=== PATIENT | female | born 1955 | race Caucasian/White ===

== ENCOUNTER 2016-12-22 14:11 | Outpatient (CLI) | payer OTHER ==
[2016-12-22 14:36] LABS: BASOPHILS % (AUTO) 0.8 %; EOSINOPHILS # (AUTO) 0.1 10^3/uL (0.0-0.7); EOSINOPHILS % (AUTO) 2.8 %; HCT - HEMATOCRIT 43.5 % (37.0-47.0); HGB - HEMOGLOBIN 14.7 g/dL (12.0-16.0); LYMPHOCYTES # (AUTO) 1.9 10^3/uL (1.5-3.5); MEAN CORPUSCULAR HEMOGLOBIN 29.4 pg (27.0-31.0); MEAN CORPUSCULAR HGB CONC 33.7 g/dL (32.0-36.0); MEAN CORPUSCULAR VOLUME 87.2 fL (81.0-99.0); MEAN PLATELET VOLUME 7.2 fL (7.9-10.8); MONOCYTES # (AUTO) 0.4 10^3/uL (0.0-1.0); MONOCYTES % (AUTO) 7.6 %; NEUTROPHILS # (AUTO) 2.6 10^3/uL (1.5-6.6); NEUTROPHILS % (AUTO) 51.8 %; RED BLOOD COUNT 4.99 10^6/uL (4.20-5.40); RED CELL DISTRIBUTION WIDTH 12.8 % (12.0-15.0); UNCORRECTED WHITE BLOOD COUNT 5.1 x10^3/uL; WHITE BLOOD COUNT 5.1 x10^3/uL (4.8-10.8)
[2016-12-22 14:47] LABS: ALBUMIN/GLOBULIN RATIO 1.5 (1.0-2.2); CALCIUM 9.2 mg/dL (8.5-10.3); CREATININE 0.6 mg/dL (0.4-1.0); POTASSIUM 3.8 mmol/L (3.5-5.0); TOTAL PROTEIN 7.3 g/dL (6.7-8.2)
--- NOTE | 2016-12-22 18:03 | Ultrasound Report ---
RIGHT UPPER QUADRANT ULTRASOUND: 12/22/2016 CLINICAL INDICATION: Nausea, pain. 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 The liver measures 13 cm. Hepatic echotexture is normal. No intrahepatic biliary dilatation or foca l parenchymal lesion is present. The common bile duct measures 5 mm. The gallbladder is normal, as is the right kidney. No free fluid is present. IMPRESSION: NORMAL RIGHT UPPER QUADRANT ULTRASOUND. JOB #: [id number] EXT JOB #:[id number]
--- NOTE | 2016-12-22 18:08 | Ultrasound Preliminary Report ---
Exam: US ABDOMEN LIMITED IMPRESSION: Normal. No cholelithiasis or cholecystitis. [facility] SITE ID: [id number]
== END 2016-12-22 14:12 | disposition home or self-care (01) ==
LOC: DI 14:11
PROVIDERS: ATTEND Naturopath
DX: R10.9 Unspecified abdominal pain (principal); R11.0 Nausea; K29.70 Gastritis, unspecified, without bleeding; R53.83 Other fatigue
CPT/HCPCS: 36415; 76705; 80053; 82150; 83690; 85025

== ENCOUNTER 2017-05-04 14:04 | Outpatient (CLI) | payer OTHER ==
[2017-05-04 15:03] LABS: BUN - BLOOD UREA NITROGEN 10 mg/dL (6-20); CALCIUM 9.7 mg/dL (8.5-10.3); CARBON DIOXIDE - CO2 26 mmol/L (21-32); CHLORIDE 103 mmol/L (101-111); CREATININE 0.7 mg/dL (0.4-1.0); GFR - MDRD 85 (>89); GLUCOSE 86 mg/dL (70-100); MAGNESIUM 1.9 mg/dL (1.7-2.8); SODIUM 139 mmol/L (135-145)
[2017-05-04 15:06] LABS: BASOPHILS % (AUTO) 0.6 %; EOSINOPHILS # (AUTO) 0.6 10^3/uL (0.0-0.7); EOSINOPHILS % (AUTO) 10.9 %; HCT - HEMATOCRIT 39.6 % (37.0-47.0); HGB - HEMOGLOBIN 13.9 g/dL (12.0-16.0); LYMPHOCYTES % (AUTO) 37.2 %; MEAN CORPUSCULAR HEMOGLOBIN 30.4 pg (27.0-31.0); MEAN CORPUSCULAR HGB CONC 35.1 g/dL (32.0-36.0); MEAN CORPUSCULAR VOLUME 86.6 fL (81.0-99.0); MEAN PLATELET VOLUME 7.7 fL (7.9-10.8); MONOCYTES # (AUTO) 0.3 10^3/uL (0.0-1.0); MONOCYTES % (AUTO) 6.2 %; NEUTROPHILS # (AUTO) 2.4 10^3/uL (1.5-6.6); NEUTROPHILS % (AUTO) 45.1 %; RED BLOOD COUNT 4.57 10^6/uL (4.20-5.40); RED CELL DISTRIBUTION WIDTH 13.5 % (12.0-15.0); UNCORRECTED WHITE BLOOD COUNT 5.3 x10^3/uL; WHITE BLOOD COUNT 5.3 x10^3/uL (4.8-10.8)
[2017-05-04 15:22] LABS: THYROID STIMULATING HORMONE 0.29 uIU/mL (0.34-5.60)
== END 2017-05-04 14:05 | disposition home or self-care (01) ==
LOC: LAB 14:04
PROVIDERS: ATTEND Nurse Practitioner Acute Care
DX: I48.0 Paroxysmal atrial fibrillation (principal); R06.09 Other forms of dyspnea; E03.8 Other specified hypothyroidism
CPT/HCPCS: 36415; 80048; 83735; 83880; 84439; 84443; 85025

== ENCOUNTER 2017-09-17 11:12 | Emergency (ER) | payer OTHER ==
[2017-09-17 11:22] VITALS: BP 154/92
--- NOTE | 2017-09-17 12:20 | ED Physician Documentation ---
PD HPI HEAD INJURY - Stated complaint Stated Complaint: HEAD LAC - Chief complaint Chief Complaint: Laceration - History obtained from History obtained from: Patient, Family - History of Present Illness Mechanism of head injury: Blow (This is a very healthy 61-year-old woman who is up-to-date on tetanus, she was working at home, she was down on the ground opening a drawer and a heavy metal Jorge figurine fell and hit her on the right worship. There is no loss of consciousness but she was confused for about an hour with a significant headache and nausea but no vomiting. Her symptoms are improving. No other injuries.) Review of Systems Constitutional: reports: Reviewed and negative Ears: reports: Reviewed and negative Nose: reports: Reviewed and negative PD PAST MEDICAL HISTORY - Past Medical History Past Medical History: Yes Cardiovascular: None Respiratory: None GI: Other : Kidney stones Musculoskeletal: Scoliosis - Present Medications Home Medications: Ambulatory Orders Medication Instructions Recorded Confirmed Thyroid,Pork [[place] Thyroid] 90 mg ORAL DAILY 03/25/16 03/25/16 - Allergies Allergies/Adverse Reactions: Allergies Allergy/AdvReac Type Severity Reaction Status Date / Time iodine Allergy Anaphylaxis Verified 03/25/16 09:16 latex Allergy Respiratory Verified 03/25/16 09:16 Penicillins Allergy Respiratory Verified 03/25/16 09:16 Sulfa (Sulfonamide Allergy Hives Verified 03/25/16 09:16 Antibiotics) - Social History Does the pt smoke?: No Smoking Status: Never smoker PD ED PE NORMAL - Vitals Vital signs reviewed: Yes - General General: Alert and oriented X 3, No acute distress - HEENT HEENT: PERRL, EOMI, Other (There is a tiny skin tear with an underlying hematoma over the right worship, no underlying skull tenderness.) - Neck Neck: Supple, no meningeal sign, No bony TTP - Neuro Neuro: Alert and oriented X 3, 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 Departure - Departure Disposition: 01 Home, Self Care Clinical Impression: Concussion Qualifiers: Encounter type: initial encounter Loss of consciousness presence/duration: without LOC Qualified Code(s): S06.0X0A - Concussion without loss of consciousness, initial encounter Condition: Good Record reviewed to determine appropriate education?: Yes Instructions: ED Concussion Comments: Call your doctor to arrange a follow-up appointment, make the next available appointment. In the interim, return anytime if worse or if new symptoms develop. Your blood pressure was elevated today on check into the emergency department. This does not mean that you have hypertension, it is a common phenomenon to come to the emergency department and have elevated blood pressure. I recommend that you see your primary care physician within the week to have it rechecked when you are feeling better.
--- NOTE | 2017-09-17 13:03 | CT Report ---
EXAM: CT HEAD EXAM DATE: 09/17/2017 12:35 PM. CLINICAL HISTORY: Head inj. COMPARISON: None. TECHNIQUE: Multiaxial CT images were obtained from the foramen magnum to the vertex. Reformats: Coron al. IV contrast: None. In accordance with CT protocol optimization, one or more of the following dose reduction techniques w ere utilized for this exam: automated exposure control, adjustment of mA and/or KV based on patient s ize, or use of iterative reconstructive technique. FINDINGS: Parenchyma: No intraparenchymal hemorrhage. No evidence of mass, midline shift, or CT findings of inf arction. Coley-white differentiation is distinct. Extraaxial Spaces: Normal for age. No subdural or epidural collections identified. Ventricles: Normal in size and position. Sinuses and Orbits: Imaged paranasal sinuses, orbits, and mastoids show no significant abnormality. Bones: No evidence of fracture or calvarial defect. Other: None. IMPRESSION: No acute intracranial abnormality. [facility] Referring Provider Line: [phone] SITE ID: [id number]
== END 2017-09-17 13:13 | disposition home or self-care (01) ==
LOC: ED 11:12
DX: S06.0X0A Concussion without loss of consciousness, initial encounter (principal); S01.81XA Laceration without foreign body of other part of head, initial encounter; W20.8XXA Other cause of strike by thrown, projected or falling object, initial encounter; Y93.89 Activity, other specified; Y92.009 Unspecified place in unspecified non-institutional (private) residence as the place of occurrence of the external cause; R03.0 Elevated blood-pressure reading, without diagnosis of hypertension
CPT/HCPCS: 70450; 99283; 99284

== ENCOUNTER 2017-10-30 20:01 | Outpatient (CLI) | END 2017-10-30 20:02 | disposition home or self-care (01) ==

== ENCOUNTER 2018-02-21 12:49 | Emergency (ER) | payer OTHER ==
[2018-02-21] MEDS ORDERED: ONDANSETRON 4 MG/2 ML VIAL IVP STA (13:03)
[2018-02-21] MEDS ORDERED: SODIUM CHLORIDE 0.9% 1,000 ML IV ONE (13:03)
[2018-02-21 13:39] LABS: BILIRUBIN,URINE NEGATIVE (NEGATIVE); GLUCOSE, URINE (UA) NEGATIVE (NEGATIVE); KETONES,URINE (UA) TRACE mg/dL (NEGATIVE); LEUKOCYTE ESTERASE, URINE SMALL (NEGATIVE); NITRITE,URINE NEGATIVE (NEGATIVE); OCCULT BLOOD,URINE NEGATIVE (NEGATIVE); PROTEIN,URINE NEGATIVE (NEGATIVE); UROBILINOGEN,URINE 0.2 (NORMAL) E.U./dL (NORMAL)
[2018-02-21] MEDS ORDERED: ACETAMINOPHEN 1,000 MG/100 ML 100 ML IV STA (13:40)
[2018-02-21 13:43] LABS: BASOPHILS % (AUTO) 0.3 %; EOSINOPHILS # (AUTO) 0.2 10^3/uL (0.0-0.7); EOSINOPHILS % (AUTO) 4.3 %; HGB - HEMOGLOBIN 14.5 g/dL (12.0-16.0); LYMPHOCYTES # (AUTO) 1.7 10^3/uL (1.5-3.5); LYMPHOCYTES % (AUTO) 44.7 %; MEAN CORPUSCULAR HEMOGLOBIN 30.7 pg (27.0-31.0); MEAN CORPUSCULAR HGB CONC 34.9 g/dL (32.0-36.0); MEAN CORPUSCULAR VOLUME 88.1 fL (81.0-99.0); MEAN PLATELET VOLUME 7.1 fL (7.9-10.8); MONOCYTES # (AUTO) 0.3 10^3/uL (0.0-1.0); NEUTROPHILS # (AUTO) 1.6 10^3/uL (1.5-6.6); NEUTROPHILS % (AUTO) 42.7 %; PLT - PLATELET COUNT 332 10^3/uL (130-450); RED BLOOD COUNT 4.71 10^6/uL (4.20-5.40); RED CELL DISTRIBUTION WIDTH 12.7 % (12.0-15.0); WHITE BLOOD COUNT 3.8 x10^3/uL (4.8-10.8)
[2018-02-21 13:55] LABS: ALBUMIN 4.5 g/dL (3.2-5.5); ALBUMIN/GLOBULIN RATIO 1.6 (1.0-2.2); CALCIUM 9.1 mg/dL (8.5-10.3); CREATININE 0.7 mg/dL (0.4-1.0); TOTAL PROTEIN 7.3 g/dL (6.7-8.2)
[2018-02-21 14:06] LABS: CLARITY,URINE CLEAR (CLEAR)
[2018-02-21 14:23] LABS: RBC,URINE 0-5 /HPF (0-5); SQUAMOUS EPITHELIAL CELL,UR FEW Squamous (<= Few)
[2018-02-21 14:24] LABS: BACTERIA,URINE Rare /HPF (None Seen)
--- NOTE | 2018-02-21 14:45 | CT Report ---
Reason: abd pain Procedure Date: 02/21/2018 Accession Number: [id number] / [id number] Procedure: CT - Abdomen/Pelvis W/O CPT Code: FULL RESULT: EXAM: CT ABDOMEN AND PELVIS EXAM DATE: 02/21/2018 02:28 PM. CLINICAL HISTORY: Abd pain. COMPARISONS: None. TECHNIQUE: Routine helical CT imaging was performed through the abdomen and pelvis. IV contrast: None. Enteric contrast: No. Reconstructions: Coronal and sagittal. In accordance with CT protocol optimization, one or more of the following dose reduction techniques were utilized for this exam: automated exposure control, adjustment of mA and/or KV based on patient size, or use of iterative reconstructive technique. FINDINGS: Lung Bases: Unremarkable. Liver: Normal contour. No masses. Gallbladder/Bile Ducts: Unremarkable. Spleen: Normal. Pancreas: Normal. Adrenal Glands: Normal. Kidneys: No renal stones. No masses or hydronephrosis. Peritoneal Cavity/Bowel: There are several prominent lymph nodes about the central mesentery. In addition, there is graying of the fat in between the celiac artery and aorta. Pelvic Organs: The bladder is decompressed and therefore not well evaluated. The visualized pelvic organs appear otherwise within normal limits. Vasculature: No aneurysm. As above, there is slight graying of the fat between the celiac artery and aorta. Bones: No bone lesions IMPRESSION: There is subtle graying of the fat between the celiac artery and aorta. Correlate clinically for possible vasculitis. Consider ESR or other inflammatory markers, possible known vasculitides, or other inflammatory or autoimmune process. Contrast-enhanced CT or MRI may be considered as clinically desired. There are several prominent central mesentery lymph nodes that may be related to that process, but may also consider mesenteric adenitis. [facility]
[2018-02-21 15:15] VITALS: BP 128/85
--- NOTE | 2018-02-21 16:02 | ED Physician Documentation ---
PD HPI ABD PAIN - Stated complaint Stated Complaint: ABD/BACK PX - Chief complaint Chief Complaint: Abd Pain - History obtained from History obtained from: Patient - Additional information Additional information: 62-year-old female presents the emergency department with increasing abdominal pain which she describes as a sharp crampy type pain which has progressively worsened over the past several days. The patient also reports burning with urination. No changes with food. No reports of fever, vomiting or diarrhea. The patient is having difficulty pinpointing the exact location of the pain. S ymptoms are described as moderate. No other associated symptoms. No specific triggering factors. No relieving factors. Review of Systems Constitutional: denies: Fever, Chills Eyes: denies: Discharge Ears: denies: Ear pain Nose: denies: Congestion Throat: denies: Sore throat Cardiac: denies: Chest pain / pressure Respiratory: denies: Cough GI: reports: Abdominal Pain, Nausea. denies: Vomiting, Diarrhea : reports: Dysuria. denies: Incontinent, Hematuria Skin: denies: Rash Musculoskeletal: reports: Back pain (The pain radiates into the patient's back) Neurologic: denies: Focal weakness, Numbness Psychiatric: denies: Hallucinations Immunocompromised: denies: Chemotherapy PD PAST MEDICAL HISTORY - Past Medical History Past Medical History: Yes Cardiovascular: Atrial fibrillation Respiratory: Other Neuro: Migraines Endocrine/Autoimmune: HyPOthyroidism GI: Other : Kidney stones Musculoskeletal: Scoliosis - Past Surgical History Past Surgical History: Yes General: Appendectomy HEENT: Tonsil/Adenoidectomy - Present Medications Home Medications: Ambulatory Orders Medication Instructions Recorded Confirmed Thyroid,Pork [[place] Thyroid] 90 mg ORAL DAILY 03/25/16 03/25/16 - Allergies Allergies/Adverse Reactions: Allergies Allergy/AdvReac Type Severity Reaction Status Date / Time iodine Allergy Anaphylaxis Verified 02/21/18 13:01 latex Allergy Respiratory Verified 02/21/18 13:01 Penicillins Allergy Respiratory Verified 02/21/18 13:01 Sulfa (Sulfonamide Allergy Hives Verified 02/21/18 13:01 Antibiotics) - Social History Does the pt smoke?: No Smoking Status: Never smoker Does the pt drink ETOH?: Yes ETOH Use: Wine Does the pt have substance abuse?: No - Immunizations Immunizations are current?: Yes - POLST Patient has POLST: No PD ED PE NORMAL - General General: Alert and oriented X 3, No acute distress - HEENT HEENT: Atraumatic, PERRL, EOMI, Ears normal - Neck Neck: Supple, no meningeal sign - Cardiac Cardiac: RRR, Strong equal pulses - Respiratory Respiratory: No respiratory distress, Clear bilaterally - Abdomen Abdomen: Soft, Non distended. No: Non tender (The patient has generalized tenderness, there is no rebound or peritoneal signs) - Back Back: No CVA TTP - Derm Derm: Normal color, No rash - Extremities Extremities: No deformity, No edema - Neuro Neuro: Alert and oriented X 3, Normal speech - Psych Psych: Normal affect Results - Vitals Vitals: Vital Signs - 24 hr 02/21/18 02/21/18 12:58 15:13 Temperature 35.7 C L 36.5 C Heart Rate 64 64 Respiratory 20 16 Rate Blood Pressure 146/80 H 128/85 H O2 Saturation 100 100 Oxygen O2 Source Room air - Labs Labs: Laboratory Tests 02/21/18 02/21/18 02/21/18 13:29 13:29 13:29 WBC 3.8 L RBC 4.71 Hgb 14.5 Hct 41.5 MCV 88.1 MCH 30.7 MCHC 34.9 RDW 12.7 Plt Count 332 MPV 7.1 L Neut # (Auto) 1.6 Lymph # (Auto) 1.7 [place] # (Auto) 0.3 Eos # (Auto) 0.2 Baso # (Auto) 0.0 Absolute Nucleated RBC 0.00 Nucleated RBC % 0.1 ESR Sodium 137 Potassium 3.6 Chloride 106 Carbon Dioxide 23 Anion Gap 8.0 BUN 10 Creatinine 0.7 Estimated GFR (MDRD) 85 L Glucose 89 Calcium 9.1 Total Bilirubin 1.0 AST 32 ALT 27 Alkaline Phosphatase 64 C-Reactive Protein Total Protein 7.3 Albumin 4.5 Globulin 2.8 Albumin/Globulin Ratio 1.6 Lipase 28 Urine Color YELLOW Urine Clarity CLEAR Urine pH 8.0 H Ur Specific [place] 1.010 Urine Protein NEGATIVE Urine Glucose (UA) NEGATIVE Urine Ketones TRACE Urine Occult Blood NEGATIVE Urine Nitrite NEGATIVE Urine Bilirubin NEGATIVE Urine Urobilinogen 0.2 (NORMAL) Ur Leukocyte Esterase SMALL H Urine RBC 0-5 Urine WBC 6-10 H Ur Squamous Epith Cells FEW Squamous Urine Bacteria Rare Ur Microscopic Review INDICATED Urine Culture Comments INDICATED 02/21/18 02/21/18 13:29 13:29 WBC RBC Hgb Hct MCV MCH MCHC RDW Plt Count MPV Neut # (Auto) Lymph # (Auto) [place] # (Auto) Eos # (Auto) Baso # (Auto) Absolute Nucleated RBC Nucleated RBC % ESR 7 Sodium Potassium Chloride Carbon Dioxide Anion Gap BUN Creatinine Estimated GFR (MDRD) Glucose Calcium Total Bilirubin AST ALT Alkaline Phosphatase C-Reactive Protein < 1.0 Total Protein Albumin Globulin Albumin/Globulin Ratio Lipase Urine Color Urine Clarity Urine pH Ur Specific [place] Urine Protein Urine Glucose (UA) Urine Ketones Urine Occult Blood Urine Nitrite Urine Bilirubin Urine Urobilinogen Ur Leukocyte Esterase Urine RBC Urine WBC Ur Squamous Epith Cells Urine Bacteria Ur Microscopic Review Urine Culture Comments - Rads (name of study) CT abd/pelvis Radiology: Final report received (IMPRESSION: There is subtle graying of the fat between the celiac artery and aorta. Correlate clinically for possible vasculitis. Consider ESR or other inflammatory markers, possible known vasculitides, or other inflammatory or autoimmune process. Contrast-enhanced CT or MRI may be considered as clinically desired. There are several prominent central mesentery lymph nodes that may be ) PD MEDICAL DECISION MAKING - ED course ED course: The case was discussed with the on-call general surgeon Dr. Gastelum, the patient's clinical presentation, lab work and CT findings were discussed. Presently the patient has no acute surgical condition and since there is no evidence of sepsis and her pain is under control he recommends having the patient continue her workup as an outpatient. On reevaluation the patient is resting comfortably. I discussed with the patient the findings on her workup. The patient is unable to have a CT scan with IV contrast secondary to a history of allergic reactions. I advised that the patient will need an MRI with and without contrast to further evaluate these nonspecific findings seen on CT scan to help delineate the etiology of her pain. Presently, the patient appears appropriate for discharge and further workup as an outpatient. The patient is going to talk with her natural pathic physician tomorrow to arrange for further workup. I discussed with the patient warning signs and advised that she should return to the emergency department immediately for any worsening or any concerns. Departure - Departure Disposition: 01 Home, Self Care Clinical Impression: Abnormal CT of the abdomen Abdominal pain Qualifiers: Abdominal location: generalized Qualified Code(s): R10.84 - Generalized abdominal pain Condition: Good Follow-Up: Edwin Mari ND [Primary Care Provider] - Tomorrow (Please ask your ND to order an outpatient MRI with and without contrast of your abdomen and pelvis to further evaluate the nonspecific finding seen on CT scan today. This is to help rule out or rule in a vasculitis.) Comments: Please return to the emergency department immediately for any worsening or any concerns.
== END 2018-02-21 16:29 | disposition home or self-care (01) ==
LOC: ED 12:49
DX: R93.5 Abnormal findings on diagnostic imaging of other abdominal regions, including retroperitoneum (principal); R10.84 Generalized abdominal pain; E03.9 Hypothyroidism, unspecified; Z91.041 Radiographic dye allergy status
CPT/HCPCS: 36415; 74176; 80053; 81001; 81003; 83690; 85025; 85651; 86140; 87086; 96360; 99282; 99283

== ENCOUNTER 2019-07-18 17:37 | Outpatient (CLI) | payer OTHER ==
--- NOTE | 2019-07-18 18:24 | XRAY Report ---
Reason: COUGH Procedure Date: 07/18/2019 Accession Number: [id number] / [id number] Procedure: XR - Chest 2 View X-Ray CPT Code: 45320 Final Report FULL RESULT: EXAM: CHEST RADIOGRAPHY EXAM DATE: 07/18/2019 05:51 PM. CLINICAL HISTORY: COUGH. COMPARISON: CHEST 2 VIEW PA/LAT 03/25/2016 2:49 PM. TECHNIQUE: 2 views. FINDINGS: Lungs/Pleura: No focal opacities evident. No pleural effusion. No pneumothorax. Normal volumes. Mediastinum: There is mild to moderate tortuosity of the thoracic aorta. The heart size is normal. Other: None. IMPRESSION: Negative for an acute cardiopulmonary abnormality. [facility]
== END 2019-07-18 17:38 | disposition home or self-care (01) ==
LOC: DI 17:37
PROVIDERS: ATTEND Naturopath
DX: R05 Cough (principal)
CPT/HCPCS: 71046

== ENCOUNTER 2020-10-01 15:29 | Outpatient (CLI) | payer OTHER ==
[2020-10-01 20:37] LABS: THYROID STIMULATING HORMONE 19.44 uIU/mL (0.34-5.60)
[2020-10-01 20:39] LABS: FREE T3 4.03 pg/mL (2.5-3.9)
[2020-10-01 20:40] LABS: FREE T4 (FREE THYROXINE) 0.65 ng/dL (0.58-1.64)
== END 2020-10-01 15:30 | disposition home or self-care (01) ==
LOC: LAB.S 15:29
PROVIDERS: ATTEND Internal Medicine Endocrinology, Diabetes & Metabolism
DX: E03.8 Other specified hypothyroidism (principal)
CPT/HCPCS: 36415; 84439; 84443; 84481

== ENCOUNTER 2020-10-28 08:00 | Outpatient (CLI) | payer OTHER ==
--- NOTE | 2020-10-29 14:21 | Mammography Report ---
BILATERAL DIGITAL SCREENING MAMMOGRAM 3D/2D WITH EXAGGERATED CC: 10/28/2020 CLINICAL: Routine screening. Comparison is made to exam dated: 09/04/2014 mammogram - [facility]. The tissue of both breasts is extremely dense, which lowers the sensitivity of mammography. There are benign vascular calcifications in both breasts. No significant masses, calcifications, or other findings are seen in either breast. There has been no significant interval change. IMPRESSION: BENIGN There is no mammographic evidence of malignancy. A 1 year screening mammogram is recommended. This exam was interpreted at Station ID: [id number]. NOTE: For mammograms, a report in lay terms will be sent to the patient. Approximately 15% of breast malignancies will not be visualized mammographically. In the management of a palpable breast mass, a negative mammogram must not discourage biopsy of a clinically suspicious lesion. Electronically Signed By: Jean Donahue M.D. slc/penrad:10/28/2020 16:16:53 ACR BI-RADS Category 2: Benign Finding(s) 3342F PARENCHYMAL PATTERN: (VD) - The breast(s) demonstrate(s) extremely dense parenchyma, limiting the sen sitivity of mammography. BI-RADS CATEGORY: (2) - 2 RECOMMENDATION: (ANNUAL) - Recommend routine annual screening mammography. [id number] 1 year screening LATERALITY: (B)
== END 2020-10-28 23:59 | disposition home or self-care (01) ==
LOC: DI.S 08:00
PROVIDERS: ATTEND Naturopath
DX: Z12.31 Encounter for screening mammogram for malignant neoplasm of breast (principal)

== ENCOUNTER 2020-10-28 12:57 | Outpatient (CLI) | payer OTHER ==
--- NOTE | 2020-10-28 13:42 | XRAY Report ---
PROCEDURE: Chest 2 View X-Ray INDICATIONS: ABN BREATHING TECHNIQUE: 2 view(s) of the chest. COMPARISON: None. FINDINGS: Surgical changes and devices: None. Lungs and pleura: No pleural effusions or pneumothorax. Lungs are clear. Mediastinum: Mediastinal contours are normal. Heart size is normal. Bones and chest wall: No suspicious bony abnormalities. Soft tissues appear unremarkable. S-shaped scoliosis of thoracic and lumbar spine is seen. IMPRESSION: No acute cardiopulmonary pathology. Reviewed by: Kan Stinson MD on 10/28/2020 1:41 PM PDT Approved by: Kan Stinson MD on 10/28/2020 1:41 PM PDT Station ID: [id number]
== END 2020-10-28 12:58 | disposition home or self-care (01) ==
LOC: DI.S 12:57
PROVIDERS: ATTEND Naturopath
DX: Z01.84 Encounter for antibody response examination (principal); R06.89 Other abnormalities of breathing; J06.9 Acute upper respiratory infection, unspecified; Z20.822 Contact with and (suspected) exposure to COVID-19
CPT/HCPCS: 81599; 86769

== ENCOUNTER 2021-03-05 13:45 | Outpatient (CLI) | payer OTHER ==
[2021-03-05 20:18] LABS: THYROID STIMULATING HORMONE 5.98 uIU/mL (0.34-5.60)
[2021-03-05 20:20] LABS: FREE T3 3.41 pg/mL (2.5-3.9); FREE T4 (FREE THYROXINE) 0.69 ng/dL (0.58-1.64)
== END 2021-03-05 13:46 | disposition home or self-care (01) ==
LOC: LAB.S 13:45
PROVIDERS: ATTEND Internal Medicine Endocrinology, Diabetes & Metabolism
DX: E03.9 Hypothyroidism, unspecified (principal)
CPT/HCPCS: 36415; 84439; 84443; 84481

== ENCOUNTER 2021-06-01 08:00 | Outpatient (CLI) | payer OTHER | END 2021-06-01 23:59 | disposition home or self-care (01) | LOC: LAB.S 08:00 | PROVIDERS: ATTEND Physician Assistant | DX: M79.661 Pain in right lower leg (principal) | CPT/HCPCS: 36415; 85379 ==

== ENCOUNTER 2021-06-29 08:00 | Outpatient (CLI) | payer OTHER ==
--- NOTE | 2021-06-29 22:29 | Ultrasound Report ---
PROCEDURE: Duplex Ext Veins Right INDICATIONS: Rt leg pain TECHNIQUE: Real-time imaging, as well as color and pulse Doppler interrogation, were performed of the lower extr emity deep veins from the inguinal ligament to the popliteal fossa. COMPARISON: None. FINDINGS: The deep veins are normally compressible, and free of intraluminal thrombus. Color and pu lse Doppler demonstrate normal phasic intraluminal flow. There is normal augmentation response to di stal compression maneuver. IMPRESSION: Negative duplex right lower extremity venous ultrasound for DVT. Reviewed by: Romeo Peguero MD on 06/29/2021 10:27 PM PST Approved by: Romeo Peguero MD on 06/29/2021 10:27 PM PST Station ID: [id number]
== END 2021-06-29 23:59 ==
LOC: DI 08:00
PROVIDERS: ATTEND Naturopath
DX: R10.31 Right lower quadrant pain (principal); R10.11 Right upper quadrant pain; M79.661 Pain in right lower leg

== ENCOUNTER 2021-06-29 20:54 | Outpatient (CLI) | payer OTHER ==
--- NOTE | 2021-06-29 22:58 | Ultrasound Report ---
PROCEDURE: Abdomen Complete INDICATIONS: RIGHT LOWER AND UPPER QUAD PAIN TECHNIQUE: Real-time scanning was performed of the abdominal and retroperitoneal organs, with image documentatio n. COMPARISON: None. FINDINGS: Liver: Liver is normal in size and homogeneous in echotexture. Gallbladder: Unremarkable. No stones or bladder wall thickening or pain on examination. Biliary ducts: Intrahepatic bile ducts are non-dilated. Extrahepatic bile duct caliber measures 5.5 mm. Normal is 6-7 mm or less in diameter, or 10 mm or less post-cholecystectomy. Pancreas: Visualized portions of the pancreas are sonographically normal. Spleen: Spleen is normal in size and homogeneous in echotexture. It measures 9.1 cm in maximum diam eter. Kidneys: Kidneys are normal in size and echotexture. Right kidney measures 9.1 cm long; left kidney measures 9.3 cm long. No hydronephrosis or nephrolithiasis. No solid masses. Aorta: Visualized aorta is normal in caliber at less than 3 cm. Iliacs: Proximal common iliac arteries are normal in caliber at less than 2.5 cm. IVC: Intrahepatic inferior vena cava is patent. Miscellaneous: No free abdominal fluid. IMPRESSION: Unremarkable abdominal ultrasound. Reviewed by: Romeo Peguero MD on 06/29/2021 10:56 PM PST Approved by: Romeo Peguero MD on 06/29/2021 10:56 PM PST Station ID: [id number]
== END 2021-06-29 20:55 | disposition home or self-care (01) ==
LOC: DI 20:54
PROVIDERS: ATTEND Naturopath
DX: R10.31 Right lower quadrant pain (principal); R10.11 Right upper quadrant pain; M79.661 Pain in right lower leg

== ENCOUNTER 2022-07-28 09:50 | Outpatient (CLI) | payer OTHER ==
--- NOTE | 2022-07-28 14:55 | Ultrasound Report ---
PROCEDURE: Abdomen Complete INDICATIONS: RUQ PAIN TECHNIQUE: Real-time scanning was performed of the abdominal and retroperitoneal organs, with image documentatio n. COMPARISON: 06/29/2021 FINDINGS: Liver: Liver is normal in size and homogeneous in echotexture. Gallbladder: The gallbladder is normal without stones, sludge, wall thickening, or pericholecystic fl uid. No sonographic Nash's sign per the technologist. Biliary ducts: Intrahepatic bile ducts are non-dilated. Extrahepatic bile duct caliber measures 5 m m. Normal is 6-7 mm or less in diameter, or 10 mm or less post-cholecystectomy. Pancreas: Visualized portions of the pancreas are sonographically normal. Spleen: Spleen is normal in size and homogeneous in echotexture. Kidneys: Kidneys are normal in size and echotexture. Right kidney measures 9.5 cm long; left kidney measures 9.4 cm long. No hydronephrosis or nephrolithiasis. No solid masses. Aorta: Visualized aorta is normal in caliber at less than 3 cm. Iliacs: Proximal common iliac arteries are normal in caliber at less than 2.5 cm. IVC: Intrahepatic inferior vena cava is patent. Miscellaneous: No free abdominal fluid. IMPRESSION: Normal abdominal ultrasound, specifically normal gallbladder. Reviewed by: Nitza Reynolds MD on 07/28/2022 2:53 PM PDT Approved by: Nitza Reynolds MD on 07/28/2022 2:53 PM PDT Station ID: [id number]
== END 2022-07-28 09:51 | disposition home or self-care (01) ==
LOC: DI 09:50
PROVIDERS: ATTEND Naturopath
DX: R10.11 Right upper quadrant pain (principal)